=== PATIENT | male | born 1990 | race African-American/Black ===

== ENCOUNTER 2020-01-30 06:02 | Emergency (ER) | payer OTHER ==
[~2020-01-30] VITALS: Ht 162.6 cm; Wt 62.7 kg
[2020-01-30 06:10] VITALS: BP 130/67; TEMP 98
[2020-01-30] MEDS ORDERED: TRIAMCINOLONE A15 GM TP (06:33)
[2020-01-30 06:50] VITALS: PULSE 76
== END 2020-01-30 06:50 | disposition home or self-care (01) ==
LOC: COL.ER 06:02
DX: L30.9 Dermatitis, unspecified (principal)

== ENCOUNTER 2020-04-10 14:05 | Outpatient (RCR) | payer SELFPAY ==
[~2020-04-10 14:05] MED LIST: TRIAMCINOLONE A15 GM TP
== END 2020-07-09 ==
LOC: WSPT
DX: M54.40 Lumbago with sciatica, unspecified side (principal)

== ENCOUNTER 2021-11-01 07:46 | Emergency (ER) | payer OTHER ==
[~2021-11-01] VITALS: Ht 162.6 cm; Wt 68.6 kg
[2021-11-01 07:51] VITALS: BP 113/79; TEMP 99.4
[2021-11-01] MEDS ORDERED: NORCO 325 MG-51 TAB PO (08:08)
[2021-11-01] MEDS ORDERED: AMOXICILLIN 50500 MG PO (08:08)
[2021-11-01] MEDS ORDERED: AMOXICILLIN 8751 TAB PO (08:08)
[2021-11-01 08:16] VITALS: PULSE 91
== END 2021-11-01 08:16 | disposition home or self-care (01) ==
LOC: COL.ER 07:46
DX: K02.9 Dental caries, unspecified (principal); F17.200 Nicotine dependence, unspecified, uncomplicated